=== PATIENT | male | born 1985 | race Caucasian/White ===

== ENCOUNTER → 2020-06-20 | Outpatient (CLI) | payer OTHER ==
[~2020-06-20] MED LIST: ATIVAN1 MG PO; BENTYL 10MG CAP10 MG PO; FLONASE 0.05% N16 GM; HALDOL 1 MG TAB1 MG PO; NAPROSYN500 MG PO; NEOSPORIN OINT15 GM TOP; PATADAY2.5 ML EYEBOTH; PEPTO-BISM262 MG/15 PO; SEROQUEL200 MG PO; SINGULAIR10 MG PO; TINACTIN133 GM TP; TORADOL 10 MG T10 MG PO; TRILEPTAL600 MG PO; TYLENOL 325MG325 MG PO; ZANTAC150 MG PO; ZOFRAN4 MG PO; ZYRTEC10 M3 PO
== END ==
LOC: HEART 5 09:57
DX: R00.0 Tachycardia, unspecified (principal); I51.9 Heart disease, unspecified
CPT/HCPCS: 93306